=== PATIENT | male | born 1960 | race Caucasian/White ===

== ENCOUNTER 2017-06-21 08:39 | Emergency (ER) | payer MEDICARE, MEDICAID ==
[2015-10-21 13:55] VITALS: Ht 182.9 cm; Wt 63.7 kg
[~2017-06-21] VITALS: Ht 182.9 cm; Wt 63.7 kg
[~2017-06-21 08:39] MED LIST: ACE325 PO; AMLO-1 PO; ASPI-715 PO; ATR10 PO; AUG875 PO; BACDS PO; CALC-488 PO; CHL25 PO; CIPR-326 PO; CLI150 PO; CYCL10TA29 PO; DIA5 PO; DIAZ-311 PO; DIPH-1 PO; DISU250T6 PO; DOC100 PO; DOCU-299 PO; FOLI-68 PO; HCTZ25 PO; HYDR-3083 PO; HYDR-318 PO; IBU600 PO; IBU800 PO; IBUP-1618 PO; IBUP800T37 PO; KCL PO; LIS10 PO; LOR5/325 PO; LORA-1456 PO; LORAZEPAM; MIR15 PO; MULT-1372 PO; MULT-775 PO; MULT1CAP59 PO; N; NIC10R INH; NIC21T TOP; NO ROUTINE MEDS; OMEP-153; OMEP10CA40 PO; OMEP40CA45 PO; OXYIR PO; PAN40; PAN40 PO; PER PO; POTA-28 PO; POTA20PA25 PO; POTA20TA85 PO; POTA25TA6 PO; POTT20 PO; PRA20; PROM-110 PO; RAN150 PO; SERT25TA87 PO; THIA100T2 PO; TRA50 PO; TRAZ50 PO; no home medications
--- NOTE | 2017-06-21 08:44 | ER Report ---
History and Physical Time Seen By MD: 08:43 HPI/ROS CHIEF COMPLAINT: Perirectal abscess HISTORY OF PRESENT ILLNESS: A 56-year-old male with 2 weeks of worsening boil on the buttock right side per patient report. States he has planned to see Dr. Holland but has not been able to get in to see him yet and cannot wait until his appointment on Friday. Pain is in worsening. Tender to the touch. Hurts to sit. No pain with defecation no blood in the stool. No fevers that he is aware of. No other concerns or complaints today REVIEW OF SYSTEMS: Constitutional: No fever, no chills. Eyes: No discharge. ENT: No sore throat. Cardiovascular: No chest pain, no palpitations. Respiratory: No cough, no shortness of breath. Gastrointestinal: No abdominal pain, no vomiting. Genitourinary: No hematuria. Musculoskeletal: No back pain. Skin: No rashes. Neurological: No headache. Allergies: Coded Allergies: carisoprodol (Verified Allergy, Unknown, 06/21/17) Home Meds Active Scripts Oxycodone Hcl/Acet 5/325 Mg (ENDOCET 5-325 TABLET) 1 Each Tablet, 1 TAB PO Q4H Y for PAIN, #20 TAB 0 Refills Prov:RENO CASTRO MD 06/21/17 Amoxicillin/Pot Clav 875-125 Mg Tab (AUGMENTIN 875-125 TABLET) 1 Each Tablet, 1 TAB PO BID, #14 TAB 0 Refills Prov:RNEO CASTRO MD 06/21/17 Hx Smoking: Yes Smoking Status: Current: Every Day Smoker Exposure to Second Hand Smoke?: No Hx Substance Use Disorder: Yes (POT) Hx Alcohol Use: Yes Constitutional Physical Exam General Appearance: The patient is alert, has no immediate need for airway protection and no signs of toxicity. No acute distress Eyes: Pupils equal and round no pallor or injection. ENT, Mouth: Mucous membranes are moist. Respiratory: There are no retractions, lungs are clear to auscultation. Cardiovascular: Regular rate and rhythm. Gastrointestinal: Abdomen is soft and non tender, no masses, bowel sounds normal. Perirectal exam: Tender fluctuant area at approximately 11:00 appears to be an abscess adjacent to the anal verge. No discharge seen. Neurological: Normal Skin: Warm and dry, no rashes. Musculoskeletal: Neck is supple non tender. Extremities are nontender, nonswollen and have full range of motion. No edema DIFFERENTIAL DIAGNOSIS: After history and physical exam differential diagnosis was considered for Abscess, rectal abscess, perirectal abscess, no signs of Chema's gangrene or testicular pathology or necrotizing fasciitis. We'll obtain CT abdomen and pelvis to determine the extent of the abscess. All drainage procedures deferred to surgery due to proximity to the anal verge and complex anatomy at that site. Medical Decision Making Data Points Laboratory Hematology Test 06/21/17 09:10 Red Blood Count 4.33 M/uL (4.00-5.60) Mean Corpuscular Volume 105.3 fL (80.0-96.0) Mean Corpuscular Hemoglobin 37.4 pg (26.0-33.0) Mean Corpuscular Hemoglobin Concent 35.5 g/dL (32.0-36.0) Red Cell Distribution Width 14.4 % (11.5-14.5) Mean Platelet Volume 8.8 fL (7.2-11.1) Neutrophils (%) (Auto) 69.2 % (39.4-72.5) Lymphocytes (%) (Auto) 18.3 % (17.6-49.6) Monocytes (%) (Auto) 11.2 % (4.1-12.4) Eosinophils (%) (Auto) 0.8 % (0.4-6.7) Basophils (%) (Auto) 0.5 % (0.3-1.4) Nucleated RBC Relative Count (auto) 0.0 /100WBC Neutrophils # (Auto) 5.9 K/uL (2.0-7.4) Lymphocytes # (Auto) 1.6 K/uL (1.3-3.6) Monocytes # (Auto) 1.0 K/uL (0.3-1.0) Eosinophils # (Auto) 0.1 K/uL (0.0-0.5) Basophils # (Auto) 0.0 K/uL (0.0-0.1) Nucleated RBC Absolute Count (auto) 0.00 K/uL Peripheral Blood Smear No Y/N Sodium Level 139 mmol/L (137-145) Potassium Level 3.9 mmol/L (3.5-5.0) Chloride Level 106 mmol/L (98-107) Carbon Dioxide Level 25 mmol/L (22-30) Blood Urea Nitrogen 12 mg/dl (9-21) Creatinine 1.00 mg/dl (0.66-1.25) Glomerular Filtration Rate Calc > 60.0 Random Glucose 84 mg/dl (75-110) Uric Acid 5.5 mg/dl (3.5-8.5) Calcium Level 8.8 mg/dl (8.4-10.2) Total Bilirubin 0.3 mg/dl (0.2-1.3) Aspartate Amino Transf (AST/SGOT) 28 U/L (0-35) Alanine Aminotransferase (ALT/SGPT) 35 U/L (0-56) Alkaline Phosphatase 98 U/L (0-126) Total Protein 6.8 gm/dl (6.3-8.2) Albumin 3.5 g/dl (3.5-5.0) Chemistry Test 06/21/17 09:10 White Blood Count 8.6 k/uL (4.5-11.0) Red Blood Count 4.33 M/uL (4.00-5.60) Hemoglobin 16.2 g/dL (14.0-18.0) Hematocrit 45.5 % (42.0-52.0) Mean Corpuscular Volume 105.3 fL (80.0-96.0) Mean Corpuscular Hemoglobin 37.4 pg (26.0-33.0) Mean Corpuscular Hemoglobin Concent 35.5 g/dL (32.0-36.0) Red Cell Distribution Width 14.4 % (11.5-14.5) Platelet Count 133 K/uL (150-450) Mean Platelet Volume 8.8 fL (7.2-11.1) Neutrophils (%) (Auto) 69.2 % (39.4-72.5) Lymphocytes (%) (Auto) 18.3 % (17.6-49.6) Monocytes (%) (Auto) 11.2 % (4.1-12.4) Eosinophils (%) (Auto) 0.8 % (0.4-6.7) Basophils (%) (Auto) 0.5 % (0.3-1.4) Nucleated RBC Relative Count (auto) 0.0 /100WBC Neutrophils # (Auto) 5.9 K/uL (2.0-7.4) Lymphocytes # (Auto) 1.6 K/uL (1.3-3.6) Monocytes # (Auto) 1.0 K/uL (0.3-1.0) Eosinophils # (Auto) 0.1 K/uL (0.0-0.5) Basophils # (Auto) 0.0 K/uL (0.0-0.1) Nucleated RBC Absolute Count (auto) 0.00 K/uL Peripheral Blood Smear No Y/N Glomerular Filtration Rate Calc > 60.0 Uric Acid 5.5 mg/dl (3.5-8.5) Calcium Level 8.8 mg/dl (8.4-10.2) Total Bilirubin 0.3 mg/dl (0.2-1.3) Aspartate Amino Transf (AST/SGOT) 28 U/L (0-35) Alanine Aminotransferase (ALT/SGPT) 35 U/L (0-56) Alkaline Phosphatase 98 U/L (0-126) Total Protein 6.8 gm/dl (6.3-8.2) Albumin 3.5 g/dl (3.5-5.0) ED Course/Re-evaluation ED Course 06/21/2017 10:23:[address] imaging report reviewed and discussed with patient Dr. Castro was paged in consultation. The case was discussed with Dr. Donahue who will come in and see the patient. The patient was instructed to remain nothing by mouth until further notice. Decision to Disposition Date: Jun 21, 2005 Decision to Disposition Time: 11:55 Depart Departure Latest Vital Signs Impression: Primary Impression: Deb-rectal abscess Condition: Improved Disposition: HOME OR SELF-CARE New Scripts Oxycodone Hcl/Acet 5/325 Mg (ENDOCET 5-325 TABLET) 1 Each Tablet 1 TAB PO Q4H Y for PAIN, #20 TAB 0 Refills Prov: RENO CASTRO MD 06/21/17 Amoxicillin/Pot Clav 875-125 Mg Tab (AUGMENTIN 875-125 TABLET) 1 Each Tablet 1 TAB PO BID, #14 TAB 0 Refills Prov: RENO CASTRO MD 06/21/17 MICHAEL ALONZO MD Jun 21, 2017 08:44
[2017-06-21] MEDS ORDERED: NS(*) 0.9% 1000 ML BAG 1,000 ML IV ONE (09:00)
[2017-06-21] MEDS ORDERED: fentaNYL CITR 100 MCG/2 ML AMP IVP ONE (09:00)
[2017-06-21] MEDS ORDERED: ONDANSETRON 4 MG/2 ML VIAL IVP ONE (09:00)
[2017-06-21] MEDS ORDERED: NS 0.9% 150 ML BAG 150 ML ONE (09:10)
[2017-06-21] MEDS ORDERED: IOPAMIDOL 76% 75 ML INFUS BTL 75 ML ONE (09:10)
[2017-06-21 09:30] LABS: PLATELET COUNT, AUTOMATED 133 K/uL (150-450)
--- NOTE | 2017-06-21 10:18 | RADIOLOGY IMAGING REPORT ---
FACILITY: [facility] PATIENT NAME: Rajan Horner : 1960 MR: [id number] V: [id number] EXAM DATE: ORDERING PHYSICIAN: MICHAEL ALONZO TECHNOLOGIST: Location: [facility] - [place] Patient: Rajan Horner : 1960 Visit/Account:[id number] Date of Sevice: 06/21/2017 CT abdomen and pelvis with IV contrast Indication: Perirectal abscess. Comparison: None available. . Technique: Axial CT images were obtained through the abdomen and pelvis during injection of nonioni c iodinated intravenous contrast. Reformatted coronal and sagittal images were also obtained. One of the following dose optimization techniques was utilized in the performance of this exam: Autom ated exposure control; adjustment of the mA and/or kV according to the patient's size; or use of an i terative reconstruction technique. Specific details can be referenced in the facility's radiology C T exam operational policy. Contrast: 75 ml of Isovue-370 IV contrast. Findings: Lower lung amos: Limited views lower lung field are unremarkable. Liver: No focal parenchymal abnormality of the liver. Biliary: Gallbladder appears unremarkable as well as the intra and extra hepatic biliary system. Pancreas: Normal appearance. Spleen: Normal appearance. Adrenal glands: Unremarkable. Kidneys / retroperitoneum: No evidence of nephrolithiasis or hydronephrosis. No focal normality. Bowel / peritoneum / mesenteries: Postsurgical change seen in the rectum without sequelae. Sigmoid co jose luis show several diverticula without pericolonic inflammation. The colon shows no other focal abnorma lity. The appendix is normal. The small bowel shows no focal normality or obstruction. However there does seem to be a possible diverticulum along the medial aspect of the duodenum on image #50. There i s no associated focal abnormality. The duodenum is otherwise unremarkable. The stomach is decompresse d and grossly normal. No free air, free fluid, fluid collections or areas of inflammation. The inferior perirectal region d oes show a fluid collection with enhancing wall. This measures 3.6 x 2.4 cm. There is no extension to the perineum. The perirectal region shows no other focal abnormality. Lymph node assessment: No pathologic adenopathy identified. Pelvic structures: Appear unremarkable. Vessels: No significant atherosclerotic calcifications seen throughout a nonaneurysmal abdominal aort a and branches. Musculoskeletal / Body wall: No acute or aggressive osseous abnormality. Degenerative changes spine. Lower cervical spine does show postsurgical changes without sequelae. IMPRESSION: 1. 3.6 cm inferior perirectal abscess without extension to the perineum. 2. Possible small duodenal diverticulum without sequelae. 3. Diverticulosis without radiographic indication of diverticulitis. Report Dictated By: Keven Crowell at 06/21/2017 10:04 AM Report E-Signed By: Keven Corwell at 06/21/2017 10:13 AM WSN:[id number]
[2017-06-21] MEDS ORDERED: ERTAPENEM(*) 1 GM VIAL 1 GM in NS(*) 0.9% 100 ML ADDVANT BAG 100 ML IVPB ONE (11:25)
[2017-06-21] MEDS ORDERED: ERTAPENEM 1 GM VIAL ONE (11:28)
--- NOTE | 2017-06-21 11:46 | General Surgery Consultation ---
History of Present Illness Requesting Physician Dr. Milner, ER Reason for Consult Perianal abscess Chief Complaint Pain around anus History of Present Illness 56yo male, h/o multiple hemorrhoidectomies, presents with several weeks of perianal pain and swelling that worsened over the last couple of days. He has an appointment to see Dr. Pro this next week but couldn't wait due to increasing pain. No previous colonoscopy. He has chronic mild diarrhea. History Problems: (1) Alcohol use disorder, severe, dependence Status: Chronic Home Meds Discontinued Scripts Diazepam (VALIUM) 5 Mg Tablet, 5 MG PO TID Y for MUSCLE SPASMS, #10 TAB Prov:ELISHA MCCURDY [employer] 12/29/16 Allergies: Coded Allergies: carisoprodol (Verified Allergy, Unknown, 06/21/17) Family History: FH: alcoholism FATHER, MOTHER, BROTHER OR SISTER BROTHER OR SISTER BROTHER OR SISTER, FHx: hepatitis BROTHER OR SISTER, Review of Systems All Systems Reviewed/Normal: Yes, Except as Noted Exam Vital Signs Vital Signs Date Time Temp Pulse Resp B/P (MAP) Pulse Ox O2 Delivery O2 Flow Rate FiO2 06/21/17 11:25 76 95 06/21/17 11:00 116/82 (93) 06/21/17 08:51 99.2 16 Room Air General Appearance: Alert, Awake, No Acute Distress, Afebrile GI: Other (Multiple scarring around anus. Anterior to anus in perineal midline is a red, tender, fluctuant area c/w an abscess.) Medical Decision Making Data Points Result Diagram: 06/21/17 0910 06/21/17 0910 Assessment and Plan Problems: (1) Deb-rectal abscess Status: Acute Assessment & Plan: Abscess incised and drained in the ER without problems. Plain packing strip placed in the abscess cavity and patient instructed to remove the packing on 06/23/17. I will see him back in my office this week. Will send him home with 7 days of augmentin. Condition Stable. Time Spent: < 30 min Venous Thromboembolism VTE Risk Physician Assess for VTE Risk: Yes Patient's VTE Risk: Low VTE Diagnostic Test 2 Days Prior to Admit: No Antithrombotics Is Pt On Any Antithrombotics?: No Procedure - Preop dx: Perianal abscess Postop dx: ANASTACIA Procedure: I/D of perianal abscess Complications: None Anesthesia: Local, 1% lidocaine plane, 4mL Indications: Perianal abscess Procedure: His perineum was prepped and draped in a sterile fashion and anesthetized with 1% lidocaine plane. I made an elliptical incision over the fluctuant area and drained approximately 18 mL of purulent fluid. I probed the cavity to ensure there were no loculations, irrigated it out, and then packed it with half inch plain packing strip. I then covered the area with gauze which were taped in place. He tolerated the procedure without any problems. RENO CASTRO MD Jun 21, 2017 11:46
[2017-06-21] MEDS ORDERED: OXYC-854 PO (11:48)
[2017-06-21] MEDS ORDERED: AMOX-559 PO (11:48)
[2017-06-21 11:55] VITALS: BP 128/71
== END 2017-06-21 11:55 | disposition home or self-care (01) ==
LOC: ER 08:49
DX: K61.1 Rectal abscess (principal); K57.30 Diverticulosis of large intestine without perforation or abscess without bleeding
CPT/HCPCS: 46050; 74177; 84550; 85025; 96365; 96375; 99284; J1335; J2405; J3010; J7050; Q9967; 82040; 82247; 82310; 82374; 82435; 82565; 82947; 84075; 84132; 84155; 84295; 84450; 84460; 84520

== ENCOUNTER 2017-11-01 12:45 | Observation (INO) | payer MEDICARE, MEDICAID ==
[2015-10-21 13:55] VITALS: Ht 180.3 cm; Wt 56.2 kg
[~2017-11-01] VITALS: Ht 180.3 cm; Wt 56.2 kg
[~2017-11-01 12:45] MED LIST changes: +AMOX-559 PO; +OXYC-854 PO
[2017-11-01] MEDS ORDERED: THIAMINE HCL(*) 200 MG/2 ML IN 100 MG, FOLIC ACID(*) 50 MG/10 ML INJ 1 MG, MULTIVITAMIN... IV ONE (12:48)
--- NOTE | 2017-11-01 13:19 | ER Report ---
History and Physical Time Seen By MD: 12:45 Hx. of Stated Complaint: PT RECENTLY LOST FAMILY MEMBER. HAS BEEN DRINKING AND VERY DEPRESSED. STATES THAT HE IS GOING TO HANG HIMSELF. HPI/ROS CHIEF COMPLAINT: Depression and alcohol dependence, suicidal ideation HISTORY OF PRESENT ILLNESS: Patient is a 57-year-old male resents the ED with complaint of depression, suicidal ideation, alcohol dependence. He states that he did call the police officers stating that he wanted to kill himself. He states that he does drink every day and today thus far has had 2 shooters and a half pint of whiskey. He states that he normally drinks about double this amount for the day. He states that he has become more depressed lately and this past week. He states that he had a cousin that recently and [place], [place]. He states that this has made him more depressed and has now had thoughts of suicide. He states that he does have a plan and that he wanted to hang himself. He actually did get out a garden hose and a knife with the plan to hang himself. He states that he wants to voluntarily come in for help. REVIEW OF SYSTEMS: Constitutional: No fever, no chills. Eyes: No discharge. ENT: No sore throat. Cardiovascular: No chest pain, no palpitations. Respiratory: No cough, no shortness of breath. Gastrointestinal: No abdominal pain, no vomiting. Genitourinary: No hematuria. Musculoskeletal: No back pain. Skin: No rashes. Neurological: No headache. Allergies: Coded Allergies: carisoprodol (Verified Allergy, Unknown, 11/01/17) Home Meds Discontinued Scripts Oxycodone Hcl/Acet 5/325 Mg (ENDOCET 5-325 TABLET) 1 Each Tablet, 1 TAB PO Q4H Y for PAIN, #20 TAB 0 Refills Prov:RENO CASTRO MD 06/21/17 Amoxicillin/Pot Clav 875-125 Mg Tab (AUGMENTIN 875-125 TABLET) 1 Each Tablet, 1 TAB PO BID, #14 TAB 0 Refills Prov:RENO CASTRO MD 06/21/17 Reviewed Nurses Notes: Yes Old Medical Records Reviewed: Yes Hx Smoking: Yes Smoking Status: Current: Every Day Smoker Exposure to Second Hand Smoke?: No Hx Substance Use Disorder: Yes (POT) Hx Alcohol Use: Yes Constitutional Vital Sign - Last 24 Hours 11/01/17 11/01/17 11/01/17 11/01/17 12:48 13:42 14:04 14:07 Temp 98.3 Pulse 99 86 83 Resp 14 16 16 B/P (MAP) 144/95 138/88 (105) 116/75 (89) Pulse Ox 91 90 86 O2 Delivery Room Air Room Air Room Air O2 Flow Rate 2.0 Physical Exam General Appearance: The patient is alert, has no immediate need for airway protection and no signs of toxicity. Patient is tearful and appears depressed. Eyes: Pupils equal and round no pallor or injection. ENT, Mouth: Mucous membranes are moist. Respiratory: There are no retractions, lungs are clear to auscultation. He does have a right chest deformity which apparently is from the old injury from a horse kicking him. Cardiovascular: Regular rate and rhythm. Gastrointestinal: Abdomen is soft and non tender, no masses, bowel sounds normal. Neurological: Revealed nerves II-12 intact. There is some horizontal nystagmus noted. Skin: Warm and dry, no rashes. Musculoskeletal: Neck is supple non tender. Extremities are nontender, nonswollen and have full range of motion. Medical Decision Making Data Points Result Diagram: 11/01/17 1307 11/01/17 1307 Laboratory Hematology Test 11/01/17 13:00 11/01/17 13:07 Urine Color Yellow Urine Clarity Clear Urine pH 5.0 pH (4.8-9.5) Urine Specific [place] 1.009 Urine Protein Negative mg/dL (NEGATIVE) Urine Glucose (UA) Negative mg/dL (NEGATIVE) Urine Ketones Negative mg/dL (NEGATIVE) Urine Blood Negative (NEGATIVE) Urine Nitrite Negative (NEGATIVE) Urine Bilirubin Negative (NEGATIVE) Urine Urobilinogen Negative mg/dL (0.2-1.9) Urine Leukocyte Esterase Negative (NEGATIVE) Urine RBC <1 /HPF (0-2/HPF) Urine WBC 1 /HPF (0-5/HPF) Urine Squamous Epithelial Cells Few /LPF (</=FEW) Urine Bacteria Negative /HPF (NONE-FEW) Urine Mucus Few /HPF (NONE-FEW) Urine Opiates Screen Negative Urine Barbiturates Screen Negative Ur Tricyclic Antidepressants Screen Negative Urine Phencyclidine Screen Negative Urine Amphetamines Screen Negative Urine Benzodiazepines Screen Negative Urine Cocaine Screen Negative Urine Cannabinoids Screen Positive Red Blood Count 4.48 M/uL (4.00-5.60) Mean Corpuscular Volume 106.9 fL (80.0-96.0) Mean Corpuscular Hemoglobin 37.7 pg (26.0-33.0) Mean Corpuscular Hemoglobin Concent 35.3 g/dL (32.0-36.0) Red Cell Distribution Width 13.9 % (11.5-14.5) Mean Platelet Volume 7.8 fL (7.2-11.1) Neutrophils (%) (Auto) 61.3 % (39.4-72.5) Lymphocytes (%) (Auto) 31.7 % (17.6-49.6) Monocytes (%) (Auto) 6.2 % (4.1-12.4) Eosinophils (%) (Auto) 0.4 % (0.4-6.7) Basophils (%) (Auto) 0.4 % (0.3-1.4) Nucleated RBC Relative Count (auto) 0.1 /100WBC Neutrophils # (Auto) 6.5 K/uL (2.0-7.4) Lymphocytes # (Auto) 3.4 K/uL (1.3-3.6) Monocytes # (Auto) 0.7 K/uL (0.3-1.0) Eosinophils # (Auto) 0.0 K/uL (0.0-0.5) Basophils # (Auto) 0.0 K/uL (0.0-0.1) Nucleated RBC Absolute Count (auto) 0.01 K/uL Sodium Level 147 mmol/L (137-145) Potassium Level 3.5 mmol/L (3.5-5.0) Chloride Level 112 mmol/L (98-107) Carbon Dioxide Level 19 mmol/L (22-30) Blood Urea Nitrogen 12 mg/dl (9-21) Creatinine 1.00 mg/dl (0.66-1.25) Glomerular Filtration Rate Calc > 60.0 Random Glucose 95 mg/dl (75-110) Calcium Level 8.5 mg/dl (8.4-10.2) Magnesium Level 1.9 mg/dl (1.7-2.2) Total Bilirubin 0.4 mg/dl (0.2-1.3) Aspartate Amino Transf (AST/SGOT) 35 U/L (0-35) Alanine Aminotransferase (ALT/SGPT) 20 U/L (0-56) Alkaline Phosphatase 112 U/L (0-126) Total Protein 6.9 g/dl (6.3-8.2) Albumin 3.7 g/dl (3.5-5.0) Salicylates Level 25 mg/L Salicylate Last Dose Date unknown Acetaminophen Level < 10 ug/ml Serum Alcohol 374 mg/dl Chemistry Test 11/01/17 13:00 11/01/17 13:07 Urine Color Yellow Urine Clarity Clear Urine pH 5.0 pH (4.8-9.5) Urine Specific [place] 1.009 Urine Protein Negative mg/dL (NEGATIVE) Urine Glucose (UA) Negative mg/dL (NEGATIVE) Urine Ketones Negative mg/dL (NEGATIVE) Urine Blood Negative (NEGATIVE) Urine Nitrite Negative (NEGATIVE) Urine Bilirubin Negative (NEGATIVE) Urine Urobilinogen Negative mg/dL (0.2-1.9) Urine Leukocyte Esterase Negative (NEGATIVE) Urine RBC <1 /HPF (0-2/HPF) Urine WBC 1 /HPF (0-5/HPF) Urine Squamous Epithelial Cells Few /LPF (</=FEW) Urine Bacteria Negative /HPF (NONE-FEW) Urine Mucus Few /HPF (NONE-FEW) Urine Opiates Screen Negative Urine Barbiturates Screen Negative Ur Tricyclic Antidepressants Screen Negative Urine Phencyclidine Screen Negative Urine Amphetamines Screen Negative Urine Benzodiazepines Screen Negative Urine Cocaine Screen Negative Urine Cannabinoids Screen Positive White Blood Count 10.6 k/uL (4.5-11.0) Red Blood Count 4.48 M/uL (4.00-5.60) Hemoglobin 16.9 g/dL (14.0-18.0) Hematocrit 47.9 % (42.0-52.0) Mean Corpuscular Volume 106.9 fL (80.0-96.0) Mean Corpuscular Hemoglobin 37.7 pg (26.0-33.0) Mean Corpuscular Hemoglobin Concent 35.3 g/dL (32.0-36.0) Red Cell Distribution Width 13.9 % (11.5-14.5) Platelet Count 276 K/uL (150-450) Mean Platelet Volume 7.8 fL (7.2-11.1) Neutrophils (%) (Auto) 61.3 % (39.4-72.5) Lymphocytes (%) (Auto) 31.7 % (17.6-49.6) Monocytes (%) (Auto) 6.2 % (4.1-12.4) Eosinophils (%) (Auto) 0.4 % (0.4-6.7) Basophils (%) (Auto) 0.4 % (0.3-1.4) Nucleated RBC Relative Count (auto) 0.1 /100WBC Neutrophils # (Auto) 6.5 K/uL (2.0-7.4) Lymphocytes # (Auto) 3.4 K/uL (1.3-3.6) Monocytes # (Auto) 0.7 K/uL (0.3-1.0) Eosinophils # (Auto) 0.0 K/uL (0.0-0.5) Basophils # (Auto) 0.0 K/uL (0.0-0.1) Nucleated RBC Absolute Count (auto) 0.01 K/uL Glomerular Filtration Rate Calc > 60.0 Calcium Level 8.5 mg/dl (8.4-10.2) Magnesium Level 1.9 mg/dl (1.7-2.2) Total Bilirubin 0.4 mg/dl (0.2-1.3) Aspartate Amino Transf (AST/SGOT) 35 U/L (0-35) Alanine Aminotransferase (ALT/SGPT) 20 U/L (0-56) Alkaline Phosphatase 112 U/L (0-126) Total Protein 6.9 g/dl (6.3-8.2) Albumin 3.7 g/dl (3.5-5.0) Salicylates Level 25 mg/L Salicylate Last Dose Date unknown Acetaminophen Level < 10 ug/ml Serum Alcohol 374 mg/dl Toxicology Test 11/01/17 13:00 11/01/17 13:07 Urine Opiates Screen Negative Urine Barbiturates Screen Negative Ur Tricyclic Antidepressants Screen Negative Urine Phencyclidine Screen Negative Urine Amphetamines Screen Negative Urine Benzodiazepines Screen Negative Urine Cocaine Screen Negative Urine Cannabinoids Screen Positive Salicylates Level 25 mg/L Salicylate Last Dose Date unknown Acetaminophen Level < 10 ug/ml Serum Alcohol 374 mg/dl Urinalysis Test 11/01/17 13:00 Urine Color Yellow Urine Clarity Clear Urine pH 5.0 pH (4.8-9.5) Urine Specific [place] 1.009 Urine Protein Negative mg/dL (NEGATIVE) Urine Glucose (UA) Negative mg/dL (NEGATIVE) Urine Ketones Negative mg/dL (NEGATIVE) Urine Blood Negative (NEGATIVE) Urine Nitrite Negative (NEGATIVE) Urine Bilirubin Negative (NEGATIVE) Urine Urobilinogen Negative mg/dL (0.2-1.9) Urine Leukocyte Esterase Negative (NEGATIVE) Urine RBC <1 /HPF (0-2/HPF) Urine WBC 1 /HPF (0-5/HPF) Urine Squamous Epithelial Cells Few /LPF (</=FEW) Urine Bacteria Negative /HPF (NONE-FEW) Urine Mucus Few /HPF (NONE-FEW) ED Course/Re-evaluation ED Course Will obtain behavioral health labs. Patient will be given 1 L banana bag here. 11/01/2017 2:19:18 pm - discussed patient with Oscar Beyer, who is unable to except patient due to room. Discussed patient with Dr. Castro, hospitalist who will accept patient given that he is at high risk for withdrawal and has a history of withdrawal seizure. The hope is that room been up and behavioral health tomorrow for the patient to be transferred there for further psychiatric care. Decision to Disposition Date: Nov 01, 2017 Decision to Disposition Time: 14:20 Depart Departure Latest Vital Signs Vital Signs Date Time Temp Pulse Resp B/P (MAP) Pulse Ox O2 Delivery O2 Flow Rate FiO2 11/01/17 14:07 2.0 11/01/17 14:04 83 16 116/75 (89) 86 Room Air 11/01/17 12:48 98.3 Impression: Primary Impression: Alcohol dependence Additional Impressions: Alcohol intoxication Suicidal ideation Depression Condition: Improved Disposition: Admitted from ER Referrals: DEMI SANCHEZ DO (PCP) Consult Note: Amy Lincoln, Oscar Castro, Hospitalist Problem Qualifiers Primary Impression: Alcohol dependence Substance use status: unspecified alcohol-induced disorder Qualified Codes: F10.29 - Alcohol dependence with unspecified alcohol-induced disorder Additional Impressions: Alcohol intoxication Complication of substance-induced condition: uncomplicated Qualified Codes: F10.920 - Alcohol use, unspecified with intoxication, uncomplicated Depression Depression Type: unspecified Qualified Codes: F32.9 - Major depressive disorder, single episode, unspecified EDIL HUI PA-C Nov 01, 2017 13:19
[2017-11-01 13:24] LABS: PLATELET COUNT, AUTOMATED 276 K/uL (150-450)
[2017-11-01] MEDS ORDERED: DIAZEPAM 10 MG TAB PO ONE (14:20)
[2017-11-01] MEDS ORDERED: NICOTINE 21 MG/24 HR PATCH TD ONE (15:30)
[2017-11-01] MEDS ORDERED: NS(*) 0.9% 1000 ML BAG 1,000 ML IV ONE (15:55)
[2017-11-02] MEDS ORDERED: IBUPROFEN 600 MG TAB PO ONE (09:30)
[2017-11-02] MEDS ORDERED: DIAZEPAM 10 MG TAB PO PRN ×2 (17:30)
[2017-11-02 17:43] VITALS: BP 183/103
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
[2017-11-02] MEDS ORDERED: IBUP400T13 PO (18:05)
[2017-11-02] MEDS: THIAMINE HCL 100 MG TAB PO SCH (18:11)
[2017-11-02] MEDS: FOLIC ACID 1 MG TAB PO SCH (18:12)
[2017-11-02] MEDS: IBUPROFEN 200 MG TAB PO PRN (18:27)
[2017-11-02 19:39] VITALS: BP 154/110
[2017-11-02] MEDS ORDERED: NICOTINE CARTRIDGE 1 EA PO PRN (19:40)
[2017-11-02] MEDS ORDERED: NICOTINE INH SYSTEM 10 MG/INH INH PRN (19:40)
[2017-11-02 23:17] VITALS: BP 149/114
[2017-11-03 03:49] VITALS: BP 161/108
[2017-11-03 07:45] VITALS: BP 146/106
--- NOTE | 2017-11-03 08:52 | Hospitalist Depart ---
Discharge Summary Reason for Hosp/Final Diag: (1) Depression Status: Acute Hospital Course & Plan: The patient had an acute worsening of chronic depression due to a in the family. He presented initially with intoxication and suicidal ideation. He was evaluated by [facility] and recommended for admission, however, there were no beds available on [facility]. He was later reevaluated and found to have resolution of his suicidal ideation once he was no longer intoxicated. He was then admitted to the medical floor for monitoring until he could be transfered to [facility] once a bed became available. The patient improved significantly and then requested to go home. [facility] was contacted to reevaluate the patient to determine if the patient could discharge to home versus transfer to [facility]. See [facility] notes for their final recommendations. (2) Alcohol use disorder, severe, dependence Status: Chronic Hospital Course & Plan: The patient has had multiple admissions for alcohol dependence. He has a history of alcohol withdrawal seizures. He was placed on seizure precautions and CIWA protocol was ordered. He received a banana bag in ER on 11/01 and was continued on daily thiamine and folic acid when admitted to the medical floor. He did receive occasional dosing of Valium per the CIWA protocol but overall had minor symptoms. He did not have any seizure activity. (3) Chronic back pain Status: Chronic Hospital Course & Plan: The patient chronically takes ibuprofen 200 to 400mg bid at home. This was continued. (4) GERD (gastroesophageal reflux disease) Status: Chronic Hospital Course & Plan: The patient takes Prilosec prn at home. Pantoprazole was ordered during his stay on the medical floor. Departure Weight (Pounds): 124 Weight (Ounces): 6.0 Result Diagram: 11/01/17 1307 11/01/17 1307 Item Value Date Time Random Glucose 95 mg/dl 11/01/17 1307 Calcium Level 8.5 mg/dl 11/01/17 1307 Magnesium Level 1.9 mg/dl 11/01/17 1307 Total Bilirubin 0.4 mg/dl 11/01/17 1307 Aspartate Amino Transf (AST/SGOT) 35 U/L 11/01/17 1307 Alanine Aminotransferase (ALT/SGPT) 20 U/L 11/01/17 1307 Alkaline Phosphatase 112 U/L 11/01/17 1307 Total Protein 6.9 g/dl 11/01/17 1307 Albumin 3.7 g/dl 11/01/17 1307 Salicylates Level 25 mg/L 11/01/17 1307 Salicylate Last Dose Date unknown 11/01/17 1307 Acetaminophen Level < 10 ug/ml 11/01/17 1307 Serum Alcohol 374 mg/dl *H 11/01/17 1307 Urine Opiates Screen Negative 11/01/17 1300 Urine Barbiturates Screen Negative 11/01/17 1300 Ur Tricyclic Antidepressants Screen Negative 11/01/17 1300 Urine Phencyclidine Screen Negative 11/01/17 1300 Urine Amphetamines Screen Negative 11/01/17 1300 Urine Benzodiazepines Screen Negative 11/01/17 1300 Urine Cocaine Screen Negative 11/01/17 1300 Urine Cannabinoids Screen Positive 11/01/17 1300 Urine Color Yellow 11/01/17 1300 Urine Clarity Clear 11/01/17 1300 Urine pH 5.0 pH 11/01/17 1300 Urine Specific [place] 1.009 11/01/17 1300 Urine Protein Negative mg/dL 11/01/17 1300 Urine Glucose (UA) Negative mg/dL 11/01/17 1300 Urine Ketones Negative mg/dL 11/01/17 1300 Urine Blood Negative 11/01/17 1300 Urine Nitrite Negative 11/01/17 1300 Urine Bilirubin Negative 11/01/17 1300 Urine Urobilinogen Negative mg/dL 11/01/17 1300 Urine Leukocyte Esterase Negative 11/01/17 1300 Urine RBC <1 /HPF 11/01/17 1300 Urine WBC 1 /HPF 11/01/17 1300 Urine Squamous Epithelial Cells Few /LPF 11/01/17 1300 Urine Bacteria Negative /HPF 11/01/17 1300 Urine Mucus Few /HPF 11/01/17 1300 Condition: Improved Time Spent: < 30 min Consults S. Discharge Instructions Home Meds Reported Medications Ibuprofen (IBUPROFEN) 400 Mg Tablet, 2 TAB PO BID for PAIN, TAB 11/02/17 Discontinued Scripts Oxycodone Hcl/Acet 5/325 Mg (ENDOCET 5-325 TABLET) 1 Each Tablet, 1 TAB PO Q4H Y for PAIN, #20 TAB 0 Refills Prov:RENO CASTRO MD 06/21/17 Amoxicillin/Pot Clav 875-125 Mg Tab (AUGMENTIN 875-125 TABLET) 1 Each Tablet, 1 TAB PO BID, #14 TAB 0 Refills Prov:RENO CASTRO MD 06/21/17 Follow up Referrals: Family Practice with Barbie Uriarte Do Diet: Regular Activity: As Tolerated Copies to: BARBIE URIARTE DO Venous Thromboembolism Antithrombotics Is Pt On Any Antithrombotics?: No Problem Qualifiers (1) Depression: Depression Type: unspecified Qualified Codes: F32.9 - Major depressive disorder, single episode, unspecified ADELINE PATTERSON MD Nov 03, 2017 08:52
[2017-11-03] MEDS ORDERED: PANTOPRAZOLE SOD 40 MG TABEC PO SCH (09:00)
[2017-11-03] MEDS: IBUPROFEN 200 MG TAB PO PRN (09:12)
[2017-11-03] MEDS: THIAMINE HCL 100 MG TAB PO SCH (09:12)
[2017-11-03] MEDS: FOLIC ACID 1 MG TAB PO SCH (09:13)
[2017-11-03 11:56] VITALS: BP 157/100
== END 2017-11-03 08:34 | disposition home or self-care (01) ==
LOC: ER 13:00 → MED 11-02 17:18 → INTOOBSV 11-02 17:18
PROVIDERS: ADMIT Internal Medicine; ATTEND Internal Medicine
DX: F10.29 Alcohol dependence with unspecified alcohol-induced disorder (principal); F32.9 Major depressive disorder, single episode, unspecified; R45.851 Suicidal ideations; G89.4 Chronic pain syndrome; M54.9 Dorsalgia, unspecified; K21.9 Gastro-esophageal reflux disease without esophagitis
CPT/HCPCS: 80305; 81001; 83735; 84443; 85025; 96361; 96365; 99284; A9270; G0378; G0480; J3411; J3475; J7030; 80320; 80329; 82040; 82247; 82310; 82374; 82435; 82565; 82947; 84075; 84132; 84155; 84295; 84450; 84460; 84520

== ENCOUNTER 2018-12-11 11:51 | Emergency (ER) | payer MEDICARE ==
[2015-10-21 13:55] VITALS: Wt 63.5 kg
[~2018-12-11 11:51] MED LIST changes: -CALC-488 PO; +CALC-743 PO; +IBUP400T13 PO
--- NOTE | 2018-12-11 12:07 | ER Report ---
History and Physical Time Seen By MD: 12:03 Hx. of Stated Complaint: PATIENT REPORTS 2 DAYS OF LEFT LOWER BACK PAIN. HPI/ROS CHIEF COMPLAINT: left flank pain HISTORY OF PRESENT ILLNESS: Pt is a 58 year old M presenting to the ED c/o left flank pain that started 3 days ago. The pain is sharp and intermittent, comes and goes about every 5-10 min. Nothing makes the pain better, has tried Aleve. The pain is worse with movement. Pt denies moving any heavy objects or trauma to the area at time of onset. Patient has never felt symptoms similar to this in the past. Denies any nausea, vomiting, changes urinary symptoms, hematuria, changes in BMs, fever or chills. Hx of T6-T9 fracture 15 years ago but states this pain is different. REVIEW OF SYSTEMS: Respiratory: No cough, no dyspnea. Cardiovascular: No chest pain, no palpitations. Gastrointestinal: No vomiting, no abdominal pain Genitourinary: no dysuria, no hematuria, no polyuria, no diarrhea or constipation Musculoskeletal: No back pain, left flank pain. Allergies: Coded Allergies: carisoprodol (Verified Allergy, Unknown, 11/01/17) Home Meds Active Scripts Cyclobenzaprine Hcl (CYCLOBENZAPRINE HCL) 10 Mg Tablet, 10 MG PO TID PRN for MUSCLE SPASMS, #15 TAB Prov:ELISHA MCCURDY [facility] 12/11/18 Diclofenac Sodium (DICLOFENAC SODIUM) 75 Mg Tablet.dr, 75 MG PO BID, #14 TAB Prov:ELISHA MCCURDY [facility] 12/11/18 Reported Medications Ibuprofen (IBUPROFEN) 400 Mg Tablet, 2 TAB PO BID for PAIN, TAB 11/02/17 Past Medical/Surgical History TIA, seizures-alcohol withdrawl, murmur, punctured lungs, chronic diarrhea, back pain, marijuana use, alcohol abuse, hemorrhoids, [facility] hospitalization, depression, back and hand surgery Reviewed Nurses Notes: Yes Hx Smoking: Yes Smoking Status: Current: Every Day Smoker Exposure to Second Hand Smoke?: No Hx Substance Use Disorder: Yes (POT) Hx Alcohol Use: Yes Constitutional Vital Sign - Last 24 Hours 12/11/18 12/11/18 12/11/18 12/11/18 11:53 11:55 12:00 12:21 Temp 98.0 Pulse 97 74 Resp 20 B/P (MAP) 149/93 (111) 149/93 134/90 (105) Pulse Ox 92 O2 Delivery Room Air 12/11/18 12/11/18 12/11/18 12/11/18 12:30 12:51 13:00 13:21 Pulse 67 77 B/P (MAP) 145/96 (112) 141/86 (104) Pulse Ox 96 93 12/11/18 13:30 B/P (MAP) 144/92 (109) Physical Exam General Appearance: The patient is alert, has no immediate need for airway protection and no current signs of toxicity. Eyes: Pupils equal and round no injection. Respiratory: Chest is non tender, lungs are clear to auscultation. Cardiac: regular rate and rhythm Gastrointestinal: Abdomen is soft and non tender, no masses, bowel sounds normal, CVA tenderness on left Musculoskeletal: Neck: Neck is supple and non tender. Extremities have full range of motion and are non tender. Skin: No rashes or lesions. DIFFERENTIAL DIAGNOSIS: After history and physical exam differential diagnosis was considered for muscle strain, impingement, kidney stone, pyelonephritis, UTI Medical Decision Making Data Points Result Diagram: 12/11/18 1226 12/11/18 1226 Laboratory Hematology Test 12/11/18 12:26 White Blood Count 8.2 k/uL (4.5-11.0) Red Blood Count 4.65 M/uL (4.00-5.60) Hemoglobin 17.9 g/dL (14.0-18.0) Hematocrit 49.8 % (42.0-52.0) Mean Corpuscular Volume 107.2 fL (80.0-96.0) H Mean Corpuscular Hemoglobin 38.5 pg (26.0-33.0) H Mean Corpuscular Hemoglobin Concent 35.9 g/dL (32.0-36.0) Red Cell Distribution Width 13.8 % (11.5-14.5) Platelet Count 128 K/uL (150-450) L Mean Platelet Volume 9.3 fL (7.2-11.1) Neutrophils (%) (Auto) 73.2 % (39.4-72.5) H Lymphocytes (%) (Auto) 18.5 % (17.6-49.6) Monocytes (%) (Auto) 6.9 % (4.1-12.4) Eosinophils (%) (Auto) 0.4 % (0.4-6.7) Basophils (%) (Auto) 1.0 % (0.3-1.4) Nucleated RBC Relative Count (auto) 0.1 /100WBC Neutrophils # (Auto) 6.0 K/uL (2.0-7.4) Lymphocytes # (Auto) 1.5 K/uL (1.3-3.6) Monocytes # (Auto) 0.6 K/uL (0.3-1.0) Eosinophils # (Auto) 0.0 K/uL (0.0-0.5) Basophils # (Auto) 0.1 K/uL (0.0-0.1) Nucleated RBC Absolute Count (auto) 0.01 K/uL Erythrocyte Sedimentation Rate 2 mm/HOUR (0-20) Chemistry Test 12/11/18 12:26 Sodium Level 139 mmol/L (137-145) Potassium Level 3.8 mmol/L (3.5-5.0) Chloride Level 104 mmol/L (98-107) Carbon Dioxide Level 25 mmol/L (22-30) Blood Urea Nitrogen 12 mg/dl (9-21) Creatinine 1.00 mg/dl (0.66-1.25) Glomerular Filtration Rate Calc > 60.0 Random Glucose 102 mg/dl (75-110) Calcium Level 9.8 mg/dl (8.4-10.2) Total Bilirubin 0.9 mg/dl (0.2-1.3) Aspartate Amino Transf (AST/SGOT) 50 U/L (0-35) Alanine Aminotransferase (ALT/SGPT) 36 U/L (0-56) Alkaline Phosphatase 95 U/L (0-126) C-Reactive Protein < 0.5 mg/dl (<1.0) Total Protein 7.8 g/dl (6.3-8.2) Albumin 4.3 g/dl (3.5-5.0) Urinalysis Test 12/11/18 11:00 Urine Color Yellow Urine Clarity Clear Urine pH 6.0 pH (4.8-9.5) Urine Specific [place] 1.017 Urine Protein Negative mg/dL (NEGATIVE) Urine Glucose (UA) Negative mg/dL (NEGATIVE) Urine Ketones 20 mg/dL (NEGATIVE) Urine Blood Negative (NEGATIVE) Urine Nitrite Negative (NEGATIVE) Urine Bilirubin Negative (NEGATIVE) Urine Urobilinogen Negative mg/dL (0.2-1.9) Urine Leukocyte Esterase Negative (NEGATIVE) Urine RBC <1 /HPF (0-2/HPF) Urine WBC <1 /HPF (0-5/HPF) Urine Squamous Epithelial Cells Few /LPF (</=FEW) Urine Bacteria Few /HPF (NONE-FEW) Urine Mucus None /HPF (NONE-FEW) EKG/Imaging Imaging CT ABDOMEN PELVIS W/O CON HISTORY: Left flank pain TECHNIQUE: Axial images acquired through the abdomen/pelvis. Coronal and sagittal reformatting also performed. No IV contrast administered.Dose Lowering Technique One of the following dose optimization techniques was utilized in the perf ormance of this exam: Automated exposure control; adjustment of the mA and/or kV according to the patient's size; or use of an iterative reconstruction technique. Specific details can be referenced in the facility's radiology CT exam operational policy. COMPARISON: June 21, 2017 FINDINGS: Visualized lung bases: Negative. Hepatobiliary: Negative. Spleen: Negative. Adrenals: Negative. Pancreas: Negative. Kidneys ureters and bladder: No demonstration of urolithiasis, hydronephrosis or hydroureter Genitalia: Appears to be a left hydrocele and possible small right hydrocele GI: There is a surgical anastomosis at the rectosigmoid junction. There is diverticulosis throughout the left-sided the colon although no CT evidence of acute diverticulitis Vessels/spaces/nodes: Mild calcifications of the abdominal aorta Bones/soft tissues: There extensive spondylotic changes lumbar spine. Incompletely imaged posterior fixation rods in the thoracic spine Additional findings: None pertinent. IMPRESSION: No demonstration of urolithiasis, hydronephrosis or hydroureter Bilateral hydroceles, left greater than right Surgical anastomosis in rectosigmoid junction Diverticulosis of the left side of the colon although no CT evidence of acute diverticulitis Additional chronic findings as described CT Lumbar spine without intravenous contrast HISTORY: Back pain. COMPARISON: CT abdomen and pelvis dated 06/21/2017. TECHNIQUE: Noncontrast axial CT of the lumbar spine with sagittal and coronal reformats. One of the following dose optimization techniques was utilized in the performance of this exam: Automated exposure control; adjustment of the mA and/or kV according to the patient's size; or use of an iterative reconstruction technique. Specific details can be referenced in the facility's radiology CT exam operational policy. FINDINGS: Alignment: Mild convex leftward curvature. 5 mm of retrolisthesis of T12 over L1. 4 mm of retrolisthesis of L1 over L2 and L3 over L4. 3 mm of retrolisthesis of L2 over L3. 2 mm of retrolisthesis of L4 over L5. Vertebral bodies: Degenerative endplate changes at multiple levels. Normal verte bral body height. Posterior elements: Multilevel facet hypertrophy. Hardware: Partially imaged posterior spinal hardware in the lower thoracic spine. Disc Spaces: Multilevel degenerative disc disease. Soft tissues: Negative. Visualized retroperitoneal / abdominal structures: Mild calcified plaque in the aorta with no aneurysm. IMPRESSION: No acute osseous abnormality of the lumbar spine. Report Dictated By: Amadeo Rios MD at 12/11/2018 1:22 PM Report E-Signed By: Amadeo Rios MD at 12/11/2018 1:27 PM WSN:[id number] ED Course/Re-evaluation ED Course Patient presented to ED with left sided abdominal pain that started 3 days ago and has been worsening. It is a sharp intermittent pain that is not improved with Aleve. Has a history of T6-T9 vertebrae fracture. No other associated symptoms. Differential diagnoses were considered. Patient was started on a 100mL NS bolus and 30mg IV Toradol. CBC, CMP, UA and non-contrast CT of abdomen. No acute abnormalities were found on imaging and UA only showed elevated keytones. Patients condition improved but was still in pain. Patient understood his condition. Was given Rx for Flexeril 10mg TID and Diclofenac 75mg BID and instructed to follow up with his PCP on friday. ED return precautions given and understood by patient. Decision to Disposition Date: Dec 11, 2018 Decision to Disposition Time: 13:54 Depart Departure Latest Vital Signs Vital Signs Date Time Temp Pulse Resp B/P (MAP) Pulse Ox O2 Delivery O2 Flow Rate FiO2 12/11/18 13:30 144/92 (109) 12/11/18 13:21 77 93 12/11/18 11:55 98.0 20 Room Air Impression: Primary Impression: Back pain Condition: Improved Disposition: HOME OR SELF-CARE Referrals: DEMI SANCHEZ DO (PCP) New Scripts Cyclobenzaprine Hcl (CYCLOBENZAPRINE HCL) 10 Mg Tablet 10 MG PO TID PRN for MUSCLE SPASMS, #15 TAB Prov: ELISHA MCCURDY 12/11/18 Diclofenac Sodium (DICLOFENAC SODIUM) 75 Mg Tablet. 75 MG PO BID, #14 TAB Prov: ELISHA MCCURDY 12/11/18 Patient Instructions: Acute Low Back Pain (ED) Additional Instructions: Increase fluid intake. Get plenty of rest. Follow up with your primary care provider in the next week. Return to the ER if condition worsens. Limit activity by pain. Continue with your current medications. Problem Qualifiers Primary Impression: Back pain Back pain location: low back pain Chronicity: acute Back pain laterality: left Sciatica presence: without sciatica Qualified Codes: M54.5 - Low back pain ELISHA MCCURDY Dec 11, 2018 12:07
[2018-12-11] MEDS ORDERED: NS(*) 0.9% 1000 ML BAG 1,000 ML IV ONE (12:17)
[2018-12-11] MEDS ORDERED: KETOROLAC 30 MG/ML VIAL IVP ONE (12:20)
[2018-12-11 12:48] LABS: PLATELET COUNT, AUTOMATED 128 K/uL (150-450)
[2018-12-11 13:30] VITALS: BP 144/92
--- NOTE | 2018-12-11 13:34 | RADIOLOGY IMAGING REPORT ---
FACILITY: [facility] PATIENT NAME: Rajan Horner : 1960 MR: [id number] V: [id number] EXAM DATE: ORDERING PHYSICIAN: ELISHA MCCURDY TECHNOLOGIST: [place] [facility] [place]: Rajan Horner : 1960 Visit/Account:[id number] Date of Sevice: 12/11/2018 EXAMINATION: CT Lumbar spine without intravenous contrast HISTORY: Back pain. COMPARISON: CT abdomen and pelvis dated 06/21/2017. TECHNIQUE: Noncontrast axial CT of the lumbar spine with sagittal and coronal reformats. One of the following dose optimization techniques was utilized in the performance of this exam: Autom ated exposure control; adjustment of the mA and/or kV according to the patient's size; or use of an i terative reconstruction technique. Specific details can be referenced in the facility's radiology C T exam operational policy. FINDINGS: Alignment: Mild convex leftward curvature. 5 mm of retrolisthesis of T12 over L1. 4 mm of retrolisthe sis of L1 over L2 and L3 over L4. 3 mm of retrolisthesis of L2 over L3. 2 mm of retrolisthesis of L4 over L5. Vertebral bodies: Degenerative endplate changes at multiple levels. Normal vertebral body height. Posterior elements: Multilevel facet hypertrophy. Hardware: Partially imaged posterior spinal hardware in the lower thoracic spine. Disc Spaces: Multilevel degenerative disc disease. Soft tissues: Negative. Visualized retroperitoneal / abdominal structures: Mild calcified plaque in the aorta with no aneurys m. IMPRESSION: No acute osseous abnormality of the lumbar spine. Report Dictated By: Amadeo Rios MD at 12/11/2018 1:22 PM Report E-Signed By: Amadeo Rios MD at 12/11/2018 1:27 PM WSN:[id number]
--- NOTE | 2018-12-11 13:40 | RADIOLOGY IMAGING REPORT ---
FACILITY: [facility] - [place] PATIENT NAME: Rajan Horner : 1960 MR: [id number] V: [id number] EXAM DATE: ORDERING PHYSICIAN: ELISHA MCCURDY TECHNOLOGIST: Location: [facility] [place] Patient: Rajan Horner : 1960 Visit/Account:[id number] Date of Sevice: 12/11/2018 CT ABDOMEN PELVIS W/O CON HISTORY: Left flank pain TECHNIQUE: Axial images acquired through the abdomen/pelvis. Coronal and sagittal reformatting also performed. No IV contrast administered.Dose Lowering Technique One of the following dose optimization techniques was utilized in the performance of this exam: Autom ated exposure control; adjustment of the mA and/or kV according to the patient's size; or use of an i terative reconstruction technique. Specific details can be referenced in the facility's radiology C T exam operational policy. COMPARISON: June 21, 2017 FINDINGS: Visualized lung bases: Negative. Hepatobiliary: Negative. Spleen: Negative. Adrenals: Negative. Pancreas: Negative. Kidneys ureters and bladder: No demonstration of urolithiasis, hydronephrosis or hydroureter Genitalia: Appears to be a left hydrocele and possible small right hydrocele GI: There is a surgical anastomosis at the rectosigmoid junction. There is diverticulosis throughou t the left-sided the colon although no CT evidence of acute diverticulitis Vessels/spaces/nodes: Mild calcifications of the abdominal aorta Bones/soft tissues: There extensive spondylotic changes lumbar spine. Incompletely imaged posterior fixation rods in the thoracic spine Additional findings: None pertinent. IMPRESSION: No demonstration of urolithiasis, hydronephrosis or hydroureter Bilateral hydroceles, left greater than right Surgical anastomosis in rectosigmoid junction Diverticulosis of the left side of the colon although no CT evidence of acute diverticulitis Additional chronic findings as described Report Dictated By: Shikha Dutton MD at 12/11/2018 1:19 PM Report E-Signed By: Shikha Dutton MD at 12/11/2018 1:33 PM WSN:[email or web address]
[2018-12-11] MEDS ORDERED: CYCL10TA29 PO (13:59)
[2018-12-11] MEDS ORDERED: DICL-195 PO (13:59)
== END 2018-12-11 14:10 | disposition home or self-care (01) ==
LOC: ER 11:55
DX: M54.5 Low back pain (principal)
CPT/HCPCS: 72131; 74176; 81001; 85025; 85651; 86140; 96361; 96374; 99284; J1885; J7030; 82040; 82247; 82310; 82374; 82435; 82565; 82947; 84075; 84132; 84155; 84295; 84450; 84460; 84520